=== PATIENT | female | born 1990 | race Caucasian/White ===

== ENCOUNTER 2020-04-05 16:10 | Emergency (ER) | payer BC ==
[~2020-04-05] VITALS: Ht 165.1 cm; Wt 93.2 kg
[2020-04-05 17:02] VITALS: BP 122/79
== END 2020-04-05 17:06 | disposition home or self-care (01) ==
LOC: ER 16:10
DX: B34.9 Viral infection, unspecified (principal); R05 Cough; R06.02 Shortness of breath; R53.83 Other fatigue
CPT/HCPCS: 71046; 99283

== ENCOUNTER 2020-07-10 11:59 | Outpatient (CLI) | payer BC ==
[2020-07-10 12:50] LABS: CLARITY,URINE SLIGHTLY CLOUDY (Clear); COLOR,URINE YELLOW (Yellow); GLUCOSE, URINE NEGATIVE (Neg); KETONES,URINE NEGATIVE (Neg); LEUKOCYTE ESTERASE ,URINE NEGATIVE (Neg); NITRITES, URINE NEGATIVE (Neg); OCCULT BLOOD,URINE NEGATIVE (Neg); PROTEIN,URINE NEGATIVE (Neg); UROBILINOGEN,URINE 0.2 E.U/dL (0.2-1.0)
[2020-07-10 12:52] LABS: UA COLLECTION TYPE CLN CATCH MIDSTREAM
[2020-07-10 12:54] LABS: BASOPHILS % (AUTO) 0.2 % (0-1); EOSINOPHILS # (AUTO) 0.1 X10'3 (0-0.9); EOSINOPHILS % (AUTO) 0.5 % (0-6); HEMATOCRIT 39.9 % (35.0-45.0); HEMOGLOBIN 12.8 g/dl (12.0-16.0); LYMPHOCYTES # (AUTO) 2.9 X10'3 (1.1-4.8); LYMPHOCYTES % (AUTO) 20.6 % (21-51); MEAN CORPUSCULAR HEMOGLOBIN 23.8 PG (27.0-31.0); MEAN CORPUSCULAR HGB CONC 32.1 g/dL (33.0-36.5); MEAN CORPUSCULAR VOLUME 74.2 FL (78-98); MONOCYTES # (AUTO) 0.5 X10'3 (0-0.9); MONOCYTES % (AUTO) 3.9 % (2-12); NEUTROPHILS # (AUTO) 10.5 X10'3 (1.8-7.7); NEUTROPHILS % (AUTO) 74.8 % (42-75); PLATELET COUNT 304 X10'3 (140-440); RED BLOOD COUNT 5.37 X10'6 (4.20-5.60); RED CELL DISTRIBUTION WIDTH 15.3 % (11.5-14.5)
[2020-07-10 12:56] LABS: BACTERIA,URINE FEW /HPF (Neg); MUCUS STRANDS FEW /LPF (Neg); SQUAMOUS EPITHELIAL CELL,UR MANY /LPF (FEW)
[2020-07-10 12:57] LABS: RBC,URINE 0-2 /HPF (0-2); WBC,URINE 0-4 /HPF (0-4)
[2020-07-10 13:04] LABS: GLUCOSE 94 MG/DL (70-104); POTASSIUM 4.1 MMOL/L (3.5-5.1); SODIUM 137 MMOL/L (135-145)
[2020-07-10 13:05] LABS: ALANINE AMINOTRANSFERASE 25 U/L (12-78); ALBUMIN/GLOBULIN RATIO 0.8 (1.1-1.5); ALKALINE PHOSPHATASE 109 IU/L (46-116); ANION GAP 8 (8-16); ASPARTATE AMINO TRANSFERASE 11 U/L (10-37); BILIRUBIN,TOTAL 0.5 MG/DL (0.1-1.0); BLOOD UREA NITROGEN 12 MG/DL (7-18); BUN/CREATININE RATIO 15.4 (6.6-38.0); CALCIUM 9.5 MG/DL (8.5-10.1); CHLORIDE 102 MMOL/L (99-107); CREATININE 0.78 MG/DL (0.40-0.90); TOTAL CARBON DIOXIDE 27.2 MMOL/L (24-32); TOTAL PROTEIN 8.9 G/DL (6.4-8.2); eGFR 87 ML/MIN
[2020-07-10 13:10] LABS: BETA HCG,QUANTITATIVE < 1.0 mIU/ml
[2020-07-10] MEDS ORDERED: ONDA8TAB13 PO (19:51)
== END 2020-07-10 23:59 | disposition home or self-care (01) ==
LOC: LAB 11:59
PROVIDERS: ATTEND Obstetrics & Gynecology
DX: R10.11 Right upper quadrant pain (principal)
CPT/HCPCS: 36415; 80053; 81001; 84702; 85025; 86140

== ENCOUNTER 2020-07-10 15:38 | Emergency (ER) | payer BC ==
[~2020-07-10] VITALS: Ht 165.1 cm; Wt 91.4 kg
[2020-07-10] MEDS ORDERED: iohexol 300mg/ml 100ml inj. ONE (17:10)
[2020-07-10] MEDS ORDERED: ONDA8TAB13 PO (19:51)
[2020-07-10 20:03] VITALS: BP 111/61
== END 2020-07-10 20:00 | disposition home or self-care (01) ==
LOC: ER 15:39
DX: R10.31 Right lower quadrant pain (principal); Z79.899 Other long term (current) drug therapy
CPT/HCPCS: 74177; 76856; 93976; 99285; Q9967

== ENCOUNTER 2021-02-24 15:12 | Emergency (ER) | payer SELFPAY ==
[~2021-02-24] VITALS: Ht 165.1 cm; Wt 85.5 kg
[~2021-02-24 15:12] MED LIST: ONDA8TAB13 PO
[2021-02-24 16:13] VITALS: BP 156/116
[2021-02-24] MEDS ORDERED: proCHLORperazine 10 MG/2 ml inj IV ONE (16:25)
[2021-02-24] MEDS ORDERED: normal saline 1000ML IV soln IVB ONE (16:25)
[2021-02-24] MEDS ORDERED: diphenhydrAMINE 50 mg/ml inj IV ONE (16:25)
== END 2021-02-24 18:07 | disposition home or self-care (01) ==
LOC: ER 15:12
DX: G43.909 Migraine, unspecified, not intractable, without status migrainosus (principal); R11.0 Nausea; H53.9 Unspecified visual disturbance; Z79.899 Other long term (current) drug therapy
CPT/HCPCS: 96361; 96374; 96375; 99284; J0780; J1200; J7030